=== PATIENT | female | born 1945 ===

== ENCOUNTER 2017-01-06 07:51 | Day surgery (SDC) | payer MEDICARE, SELFPAY ==
[2016-12-26 08:12] VITALS: BMI 33.6
[2017-01-06] MEDS ORDERED: Lactated Ringer's 1,000 ML IV ONE ×2 (11:33)
[2017-01-06] MEDS ORDERED: Propofol 10 mg/ml Inj (20 ML) ONE (11:38)
[2017-01-06] MEDS ORDERED: Midazolam 2 MG/2 ML VIAL ONE (11:38)
[2017-01-06] MEDS ORDERED: Doxycycline 100 mg Inj ONE (11:49)
[2017-01-06 12:23] VITALS: O2SAT 100
--- NOTE | 2017-01-06 12:31 | PCM.SURG1 ---
Surgeon's Initial Post Op Note - Surgeon's Notes Surgeon: lucas Neri Order Booker: none Type of Anesthesia: General LMA Pre-Operative Diagnosis: thickened endometrium and fluid Operative Findings: atrophic endometrium except for left cornua, polyp present, no evidence of perforation Post-Operative Diagnosis: endometrial polyp Operation Performed: hysteroscopy directed D&C with myosure polypectomy Specimen/Specimens Removed: directed curettage, endometrial polyp Estimated Blood Loss: EBL {In ML}: 5 (NS 212 cc) Date of Surgery/Procedure: 01/06/17 Time of Surgery/Procedure: 12:31
[2017-01-06 14:47] VITALS: BP 112/72; PULSE 65; RESP 18; TEMP 97
--- NOTE | 2017-01-08 03:13 | OP ---
PROCEDURE DATE: 01/06/2017 SURGEON: Asha Neri MD PONY WORKER: None. TYPE OF ANESTHESIA: General LMA. PREOPERATIVE DIAGNOSIS: Thickened endometrium with fluid. OPERATIVE FINDINGS: Atrophic endometrium except for the left cornua where a polyp was present. Ther e was no evidence of perforation at the end of the procedure. POSTOPERATIVE DIAGNOSIS: Thickened endometrium with fluid with endometrial polyp. OPERATIVE PROCEDURE: Hysteroscope directed D and C with MyoSure polypectomy, specimen directed curet tage, endometrial polyp. ESTIMATED BLOOD LOSS: 5 mL, normal saline fluid deficit 212 mL. OPERATIVE INDICATION: The patient is a 71-year-old female with endometrial fluid and thickened endom etrium found on ultrasound. She also has cervical stenosis. The above procedure was discussed and t he patient consented to proceed. OPERATIVE REPORT: The patient was taken to the OR where a timeout was performed. She was placed in dorsal lithotomy position and prepped in the usual sterile fashion. The cervix was visualized, grasp ed with single tooth tenaculum. The cervix was easily serially dilated until we could pass the opera tive hysteroscope. After visualization of the above findings, the MyoSure device was used to perform curettage directly and polypectomy. All instruments were removed at the end of the procedure. Ther e was good hemostasis. All sharps, instrument and lap counts were correct x 2. POSTOPERATIVE CONDITION: Stable for PACU. Asha Neri MD cc: [id number] TT: 01/08/2017 03:13:42 an
== END 2017-01-06 14:40 | disposition home or self-care (01) ==
LOC: C.SDS 07:51
PROVIDERS: ATTEND Obstetrics & Gynecology
DX: N85.00 Endometrial hyperplasia, unspecified (principal); N84.0 Polyp of corpus uteri
CPT/HCPCS: 36415; 58558; 82948; 86850; 86900; 88305; J2250; J2704; J3010; J7120

== ENCOUNTER 2017-10-08 13:26 | Emergency (ER) | payer MEDICARE ==
[2017-10-08 13:26] VITALS: BMI 33.6
[2017-10-08 13:37] VITALS: RESP 18
[2017-10-08] MEDS ORDERED: Sodium Chloride 0.9% 1,000 ML IV ONE (14:02)
[2017-10-08] MEDS ORDERED: Sodium Chloride 0.9% 1,000 ML ONE (14:23)
--- NOTE | 2017-10-08 14:47 | C.PDOC ---
History Of Present Illness 72-year-old female, presents to the emergency department with complaints of three-day duration of multiple episodes of non-bloody/watery diarrhea. Patient states she was taking Pepto bismol at home with no relief. Denies any abdominal pain, fevers, chills, shortness of breath, chest pain, nausea/vomiting or any other associated symptoms. She has no sick contacts and no recent travel. She has not taken any antibiotics recently. No other complaints at this time. Time Seen by Provider: 10/08/17 13:55 Chief Complaint (Nursing): GI Problem History Per: Patient History/Exam Limitations: no limitations Onset/Duration Of Symptoms: Days Current Symptoms Are (Timing): Still Present Past Medical History Reviewed: Historical Data, Nursing Documentation, Vital Signs Vital Signs: Last Vital Signs Temp 97.8 F 10/08/17 16:26 Pulse 61 10/08/17 16:26 Resp 18 10/08/17 16:26 BP 130/82 10/08/17 16:26 Pulse Ox 99 10/08/17 16:26 - Medical History PMH: Arthritis, Diabetes, Hepatitis, HTN, Hypercholesterolemia, Hypothyroidism, Chronic Kidney Disease Surgical History: Endoscopy - [facility] Procedures COLONOSCOPY (11/02/14) OTH NONOPER CARD AND VASC MEASURE (02/05/15) Family History: States: No Known Family Hx - Social History Hx Tobacco Use: No Hx Alcohol Use: No Hx Substance Use: No - Immunization History Hx Tetanus Toxoid Vaccination: No Hx Influenza Vaccination: No Hx Pneumococcal Vaccination: No Review Of Systems Except As Marked, All Systems Reviewed And Found Negative. Constitutional: Negative for: Fever, Chills, Weakness Cardiovascular: Negative for: Chest Pain, Palpitations Respiratory: Negative for: Shortness of Breath Gastrointestinal: Positive for: Diarrhea. Negative for: Nausea, Vomiting, Abdominal Pain Musculoskeletal: Negative for: Back Pain Neurological: Negative for: Weakness, Numbness, Headache, Dizziness Physical Exam - Physical Exam Appears: Non-toxic, No Acute Distress Skin: Warm, Dry, No Diaphoretic, No Rash, No Jaundice Head: Normacephalic Eye(s): bilateral: PERRL, EOMI Nose: Normal Oral Mucosa: Moist Lips: Normal Appearing Neck: Normal ROM Cardiovascular: Rhythm Regular, No Murmur Respiratory: Normal Breath Sounds, No Accessory Muscle Use Gastrointestinal/Abdominal: Soft, Tenderness (Mild, RLQ.), No Guarding, No Rebound Extremity: Normal ROM Neurological/Psych: Oriented x3, Normal Speech ED Course And Treatment - Laboratory Results Result Diagrams: 10/08/17 14:38 10/08/17 14:38 Lab Interpretation: No Acute Changes O2 Sat by Pulse Oximetry: 97 Progress Note: CMP, Lipase, CBC, and UA ordered and reviewed. patient treated with IVFs Reevaluation Time: 17:34 Reassessment Condition: Improved (Patient remains comfortable. she has not had any diarrhea while in ED despite tolerating a sandwich and juice.) Disposition Counseled Patient/Family Regarding: Studies Performed, Diagnosis, Need For Followup - Disposition Referrals: Kishor Peralta MD [Staff Provider] - Disposition: HOME/ ROUTINE Disposition Time: 17:35 Condition: IMPROVED Instructions: Acute Diarrhea (ED), Nutrition Tips for Relief of Diarrhea (ED) Forms: [email or web address] (Sri Lankan) - Clinical Impression Clinical Impression: Diarrhea - Scribe Statement The provider has reviewed the documentation as recorded by the Scribe (Keegan Hayes) All medical record entries made by the Scribe were at my direction and personally dictated by me. I have reviewed the chart and agree that the record accurately reflects my personal performance of the history, physical exam, medical decision making, and the department course for this patient. I have also personally directed, reviewed, and agree with the discharge instructions and disposition.
[2017-10-08 14:49] LABS: BASO % 0.6 % (0.0-2.0); EOS # 0.1 K/uL (0.0-0.7); EOS % 2.6 % (0.0-4.0); HEMOGLOBIN 12.3 g/dL (11.0-16.0); LYMPH % 41.8 % (20.0-40.0); MEAN CELL VOLUME 85.6 fL (81.0-99.0); MEAN CORPUSCULAR HEMOGLOBIN 28.7 pg (27.0-31.0); MEAN CORPUSCULAR HGB CONC 33.5 g/dL (33.0-37.0); MEAN PLATELET VOLUME 9.8 fL (7.2-11.7); MONO # 0.7 K/uL (0.0-0.8); RBC 4.28 Mil/uL (3.80-5.20); RED CELL DISTRIBUTION WIDTH 13.8 % (11.5-14.5); WHITE BLOOD COUNT 4.9 K/uL (4.8-10.8)
[2017-10-08 15:02] LABS: ALB/GLOB RATIO 1.1 (1.0-2.1); ALT/SGPT 65 U/L (9-52); AST/SGOT 64 U/L (14-36); BLOOD UREA NITROGEN 13 mg/dL (7-17); CALCIUM 9.1 mg/dl (8.6-10.4); GFR AFRICAN-AMERICAN > 60; GFR NON-AFRICAN AMERICAN > 60; LIPASE 65 U/L (23-300)
[2017-10-08 16:00] LABS: URINE BACTERIA RARE (<OCC); URINE BILIRUBIN NEGATIVE (NEGATIVE); URINE BLOOD NEGATIVE (NEGATIVE); URINE CLARITY Clear (Clear); URINE COLOR Colorless (YELLOW); URINE GLUCOSE (UA) NORMAL (Normal); URINE LEUKOCYTE ESTERASE NEG Leu/uL (Negative); URINE NITRATE NEGATIVE (NEGATIVE); URINE PROTEIN NEGATIVE (NEGATIVE); URINE UROBILINOGEN NORMAL mg/dL (0.2-1.0)
[2017-10-08 16:27] VITALS: TEMP 97.8
[2017-10-08 17:47] VITALS: BP 128/83; PULSE 72; O2SAT 99
== END 2017-10-08 18:23 | disposition home or self-care (01) ==
LOC: C.ER 13:26
DX: R19.7 Diarrhea, unspecified (principal); E78.00 Pure hypercholesterolemia, unspecified; I12.9 Hypertensive chronic kidney disease with stage 1 through stage 4 chronic kidney disease, or unspecified chronic kidney disease; N18.9 Chronic kidney disease, unspecified; E03.9 Hypothyroidism, unspecified
CPT/HCPCS: 80053; 81001; 83690; 85025; 96360; 99284; J7040

== ENCOUNTER 2018-02-17 17:50 | Emergency (ER) | payer MEDICARE, OTHER ==
[2018-02-17 17:51] VITALS: BMI 33.6
[2018-02-17 18:28] VITALS: O2SAT 95
[2018-02-17] MEDS ORDERED: Sodium Chloride 0.9% 1,000 ML IV ONE (19:11)
--- NOTE | 2018-02-17 19:11 | C.PDOC ---
History Of Present Illness Patient presents to the ER with a complaint of RLQ pain and right flank pain since yesterday, associated with fever, mild dysuria, and some nausea. Denies vomiting. Time Seen by Provider: 02/17/18 19:11 Chief Complaint (Nursing): Abdominal Pain History Per: Patient History/Exam Limitations: no limitations Onset/Duration Of Symptoms: Days Current Symptoms Are (Timing): Still Present Severity: Moderate Pain Scale Rating Of: 4 Location Of Pain/Discomfort: RLQ Radiation Of Pain To:: Flank (Right) Quality Of Discomfort: Unable To Describe Associated Symptoms: Fever, Nausea, Urinary Symptoms (Mild dysuria). denies: Vomiting Exacerbating Factors: None Alleviating Factors: None Recent travel outside of the [place]: No Abnormal Vaginal Bleeding: No Past Medical History Reviewed: Historical Data, Nursing Documentation, Vital Signs Vital Signs: Last Vital Signs Temp 99.8 F H 02/17/18 19:46 Pulse 92 H 02/17/18 19:46 Resp 13 02/17/18 19:46 BP 125/67 02/17/18 19:46 Pulse Ox 95 02/17/18 19:46 - Medical History PMH: Arthritis, Diabetes, Hepatitis, HTN, Hypercholesterolemia, Hypothyroidism, Chronic Kidney Disease Surgical History: Endoscopy - [facility] Procedures COLONOSCOPY (11/02/14) OTH NONOPER CARD AND VASC MEASURE (02/05/15) Family History: States: No Known Family Hx - Social History Hx Tobacco Use: No Hx Alcohol Use: No Hx Substance Use: No - Immunization History Hx Tetanus Toxoid Vaccination: No Hx Influenza Vaccination: No Hx Pneumococcal Vaccination: No Review Of Systems Constitutional: Positive for: Fever Cardiovascular: Negative for: Chest Pain, Palpitations Respiratory: Negative for: Cough, Shortness of Breath Gastrointestinal: Positive for: Nausea, Abdominal Pain. Negative for: Vomiting Genitourinary: Positive for: Dysuria Musculoskeletal: Positive for: Back Pain (Right flank) Physical Exam - Physical Exam Appears: Non-toxic Skin: Warm, Dry Head: Normacephalic Oral Mucosa: Moist Chest: Symmetrical, No Tenderness Cardiovascular: Rhythm Regular Respiratory: Normal Breath Sounds, No Rales, No Rhonchi, No Wheezing Gastrointestinal/Abdominal: Soft, Tenderness (RLQ), No Guarding, No Rebound Back: No CVA Tenderness Neurological/Psych: Oriented x3 ED Course And Treatment - Laboratory Results Result Diagrams: 02/17/18 19:22 02/17/18 19:22 O2 Sat by Pulse Oximetry: 95 (Room air) Pulse Ox Interpretation: Normal Progress Note: Blood work, EKG, urinalysis, and CXR ordered. IV fluids, zosyn, and tylenol administered. Reevaluation Time: 21:09 Reassessment Condition: Improved Disposition Counseled Patient/Family Regarding: Studies Performed, Diagnosis, Need For Followup, Rx Given - Disposition Referrals: Canelo Mixon MD [Staff Provider] - Disposition: HOME/ ROUTINE Disposition Time: 19:11 Condition: FAIR Additional Instructions: Please return if symptoms recur Prescriptions: Nitrofurantoin Macrocrystals [Macrobid] 1 cap PO BID #14 cap Phenazopyridine [Pyridium] 200 mg PO TID #6 tab Instructions: Urinary Tract Infection, Adult (DC) Forms: [facility] (Turkmen) - Clinical Impression Clinical Impression: Abdominal pain, UTI (urinary tract infection) - Scribe Statement The provider has reviewed the documentation as recorded by the Scribsen Knapp All medical record entries made by the Scribe were at my direction and personally dictated by me. I have reviewed the chart and agree that the record accurately reflects my personal performance of the history, physical exam, medical decision making, and the department course for this patient. I have also personally directed, reviewed, and agree with the discharge instructions and disposition.
[2018-02-17] MEDS ORDERED: Piperacillin/Tazobact 3.375 GM in Sodium Chloride 100 ML IVPB SCH (19:15)
[2018-02-17 19:27] LABS: BASO % 0.3 % (0.0-2.0); EOS % 0.1 % (0.0-4.0); HEMOGLOBIN 11.7 g/dL (11.0-16.0); LYMPH # 0.5 K/uL (1.0-4.3); LYMPH % 4.1 % (20.0-40.0); MEAN CELL VOLUME 84.6 fL (81.0-99.0); MEAN CORPUSCULAR HEMOGLOBIN 28.2 pg (27.0-31.0); MEAN CORPUSCULAR HGB CONC 33.4 g/dL (33.0-37.0); MEAN PLATELET VOLUME 9.5 fL (7.2-11.7); MONO # 1.1 K/uL (0.0-0.8); NEUT # 10.8 K/uL (1.8-7.0); NEUT % 86.5 % (50.0-75.0); PLATELET COUNT 167 K/uL (130-400); RBC 4.16 Mil/uL (3.80-5.20); RED CELL DISTRIBUTION WIDTH 13.7 % (11.5-14.5); WHITE BLOOD COUNT 12.5 K/uL (4.8-10.8)
[2018-02-17 19:34] LABS: SQUAMOUS EPITHIAL 4 /hpf (0-5); URINE BILIRUBIN NEGATIVE (NEGATIVE); URINE BLOOD 1+ (NEGATIVE); URINE CLARITY Hazy (Clear); URINE COLOR Yellow (YELLOW); URINE GLUCOSE (UA) NORMAL (Normal); URINE LEUKOCYTE ESTERASE 3+ Leu/uL (Negative); URINE PROTEIN NEGATIVE (NEGATIVE); URINE UROBILINOGEN NORMAL mg/dL (0.2-1.0)
[2018-02-17 19:37] LABS: INR 1.2; PROTHROMBIN TIME 12.9 SECONDS (9.7-12.2)
[2018-02-17 19:38] LABS: ALB/GLOB RATIO 1.2 (1.0-2.1); ALBUMIN 4.1 g/dL (3.5-5.0); ALT/SGPT 27 U/L (9-52); AST/SGOT 24 U/L (14-36); BLOOD UREA NITROGEN 18 mg/dL (7-17); CALCIUM 9.3 mg/dl (8.6-10.4); GFR AFRICAN-AMERICAN > 60; GFR NON-AFRICAN AMERICAN 55; LIPASE 48 U/L (23-300)
[2018-02-17] MEDS ORDERED: Sodium Chloride 0.9% 1,000 ML ONE (19:45)
[2018-02-17 20:01] LABS: VENOUS BLOOD GAS BASE EXCESS -1.1 mmol/L (0.0-2.0); VENOUS BLOOD GAS PCO2 33 mmHg (40-60); VENOUS BLOOD GAS PO2 46 mm/Hg (30-55); VENOUS BLOOD PH 7.44 (7.32-7.43)
[2018-02-17 20:02] LABS: LYMPHOCYTE 4 % (20-40); MONOCYTE 9 % (0-10); NEUTROPHIL 87 % (50-75); TOTAL CELLS COUNTED 100
[2018-02-17 20:03] LABS: PLATELET ESTIMATE NORMAL (NORMAL)
[2018-02-17 20:04] LABS: HYPOCHROMIC SLIGHT; POLYCHROMIC SLIGHT
[2018-02-17 21:34] VITALS: BP 121/67; PULSE 86; RESP 16; TEMP 98.4
--- NOTE | 2018-02-18 08:59 | CT ---
PROCEDURE: CT Abdomen and Pelvis without intravenous contrast HISTORY: Right flank pain. COMPARISON: CT abdomen and pelvis dated 10/23/2015 TECHNIQUE: Multiple contiguous axial images were performed through the abdomen and pelvis without the use of intravenous contrast. Subsequently, sagittal and coronal reformatted images were obtained. Radiation dose: Total exam DLP = 854 mGy-cm. This CT exam was performed using one or more of the following dose reduction techniques: Automated exposure control, adjustment of the mA and/or kV according to patient size, and/or use of iterative reconstruction technique. FINDINGS: LOWER THORAX: Linear atelectasis or fibrosis at the lung bases. Small esophageal hiatal hernia. LIVER: Unremarkable. No gross lesion or ductal dilatation. GALLBLADDER AND BILE DUCTS: Unremarkable. PANCREAS: Unremarkable. No gross lesion or ductal dilatation. SPLEEN: Unremarkable. ADRENALS: Unremarkable. No mass. KIDNEYS AND URETERS: Mild inflammation around the right kidney and ureter which may be secondary to recently passed calculus or urinary tract infection. 2 centimeter low-attenuation lesion in the midpole of the right kidney demonstrating a Hounsfield unit attenuation of 2 suggestive for a cyst. Additional 9 millimeter hyperattenuated foci in the midpole of the right kidney best seen on series 3, image 59 demonstrating a Hounsfield unit attenuation of 53. This is of uncertain clinical etiology. This may represent a hemorrhagic cyst; however, additional etiologies are not excluded. Correlation with multiphasic CT or MR may be helpful for further evaluation if clinically indicated. VASCULATURE: Unremarkable. No aortic aneurysm. BOWEL: Unremarkable. No obstruction. No gross mural thickening. Scattered areas of underdistention of the colon. APPENDIX: Not well visualized. PERITONEUM: Unremarkable. No free fluid. No free air. LYMPH NODES: Unremarkable. No enlarged lymph nodes. BLADDER: Underdistended and or mildly thickened urinary bladder. REPRODUCTIVE: Unremarkable. BONES: Degenerative changes in the lumbar spine. Anterolisthesis of L4 on L5. OTHER FINDINGS: None. IMPRESSION: No stones in either kidney or ureter and no hydronephrosis. Mild inflammation around the right kidney and ureter may be secondary to recently passed stone or urinary tract infection. Correlation with urinalysis maybe helpful. Underdistended and or mildly thickened urinary bladder. Clinical correlation. Additional findings as above. These findings were preliminarily reported at 9:07 p.m. on 02/17/[address] Sam Brown from [facility].
--- NOTE | 2018-02-18 12:04 | RAD ---
Chest x-ray single frontal view History: Abdominal pain. Comparison: Findings: Mild venous congestion. Right basilar atelectasis. Calcification at the aortic knob. Heart size within normal limits. Degenerative changes spine. Impression: Mild venous congestion. Right basilar atelectasis. Calcification at the aortic knob.
--- NOTE | 2018-02-18 22:24 | CARD ---
APPROVED REPORT EKG Measurement Heart [id number] <Conclusion> Normal sinus rhythm Normal ECG
== END 2018-02-17 21:43 | disposition home or self-care (01) ==
LOC: C.ER 17:50
DX: N39.0 Urinary tract infection, site not specified (principal); R10.31 Right lower quadrant pain; E03.9 Hypothyroidism, unspecified; E78.00 Pure hypercholesterolemia, unspecified; I12.9 Hypertensive chronic kidney disease with stage 1 through stage 4 chronic kidney disease, or unspecified chronic kidney disease; N18.9 Chronic kidney disease, unspecified
CPT/HCPCS: 71045; 74176; 80053; 81001; 82803; 83690; 85025; 85610; 85730; 87040; 87086; 93005; 96365; 99285; J2543; J7030; J7050

== ENCOUNTER 2018-03-31 10:39 | Observation (INO) | payer MEDICARE, OTHER ==
[2018-03-31 10:39] VITALS: BMI 33.6
[2018-03-31] MEDS ORDERED: Nitroglycerin 2% Ointment Foilpak UD TOP STA (11:37)
[2018-03-31] MEDS ORDERED: Nitroglycerin 2% Ointment Foilpak UD TOP ONE (11:45)
[2018-03-31 11:53] LABS: BASO # 0.1 K/uL (0.0-0.2); BASO % 1.2 % (0.0-2.0); EOS # 0.2 K/uL (0.0-0.7); EOS % 2.4 % (0.0-4.0); LYMPH # 1.9 K/uL (1.0-4.3); LYMPH % 29.2 % (20.0-40.0); MEAN CELL VOLUME 84.9 fL (81.0-99.0); MEAN CORPUSCULAR HEMOGLOBIN 28.6 pg (27.0-31.0); MEAN CORPUSCULAR HGB CONC 33.7 g/dL (33.0-37.0); MEAN PLATELET VOLUME 10.4 fL (7.2-11.7); MONO # 0.5 K/uL (0.0-0.8); MONO % 7.9 % (0.0-10.0); NEUT # 3.8 K/uL (1.8-7.0); NEUT % 59.3 % (50.0-75.0); NRBC % 0.1 % (0.0-2.0); RBC 4.56 Mil/uL (3.80-5.20); RED CELL DISTRIBUTION WIDTH 14.7 % (11.5-14.5); WHITE BLOOD COUNT 6.5 K/uL (4.8-10.8)
[2018-03-31 12:08] LABS: ALB/GLOB RATIO 1.2 (1.0-2.1); ALBUMIN 4.4 g/dL (3.5-5.0); CALCIUM 9.7 mg/dl (8.6-10.4); D DIMER < 200 ng/mlDDU (0-243); GFR AFRICAN-AMERICAN > 60; GFR NON-AFRICAN AMERICAN > 60; PARTIAL THROMBOPLASTIN TIME 37 SECONDS (21-34)
[2018-03-31 12:15] LABS: ALT/SGPT 31 U/L (9-52); AST/SGOT 39 U/L (14-36); BLOOD UREA NITROGEN 16 mg/dL (7-17)
[2018-03-31 12:16] LABS: CK-MB 1.67 ng/mL (0.0-3.38)
--- NOTE | 2018-03-31 12:31 | C.PDOC ---
History Of Present Illness 72 year old female patient presents to the ER with c/o chest pain. Patient states "it feels like choking and pain" along with a headache. Patient reports the pain started yesterday. Patient notes she routinely takes her blood pressure medication, but her blood pressure has not returned to normal. Patient states she now feels better in the emergency room, however, her left arm is in pain. Patient denies SOB, coughing, fever and chills. Time Seen by Provider: 03/31/18 11:17 Chief Complaint (Nursing): Chest Pain History Per: Patient History/Exam Limitations: no limitations Onset/Duration Of Symptoms: Days (x2) Quality: "Pain", Other ("feels like choking") Associated Symptoms: Other (headache) Past Medical History Reviewed: Historical Data, Nursing Documentation, Vital Signs Vital Signs: Last Vital Signs Temp 97.4 F L 03/31/18 16:45 Pulse 63 03/31/18 16:45 Resp 20 03/31/18 16:45 BP 131/76 03/31/18 16:45 Pulse Ox 96 03/31/18 16:45 - Medical History PMH: Arthritis, Diabetes, Hepatitis, HTN, Hypercholesterolemia, Hypothyroidism, Chronic Kidney Disease Surgical History: Endoscopy, Tonsillectomy - [facility] Procedures COLONOSCOPY (11/02/14) OTH NONOPER CARD AND VASC MEASURE (02/05/15) Family History: States: Unknown Family Hx - Social History Hx Tobacco Use: No Hx Alcohol Use: No Hx Substance Use: No - Immunization History Hx Tetanus Toxoid Vaccination: No Hx Influenza Vaccination: No Hx Pneumococcal Vaccination: No Review Of Systems Except As Marked, All Systems Reviewed And Found Negative. Constitutional: Negative for: Fever, Chills Cardiovascular: Positive for: Chest Pain Respiratory: Negative for: Cough, Shortness of Breath Musculoskeletal: Positive for: Arm Pain (left) Physical Exam - Physical Exam Appears: Well, Non-toxic, No Acute Distress Skin: Normal Color, Warm, Dry Head: Atraumatic, Normacephalic Eye(s): bilateral: Normal Inspection Neck: Normal ROM, Supple Chest: Symmetrical, No Deformity Cardiovascular: Rhythm Regular Respiratory: Normal Breath Sounds Gastrointestinal/Abdominal: Soft, No Tenderness Back: No CVA Tenderness Extremity: Normal ROM (x4), No Pedal Edema Neurological/Psych: Oriented x3, Normal Speech, Normal Motor, Normal Sensation, Normal Reflexes Gait: Steady ED Course And Treatment - Laboratory Results Result Diagrams: 03/31/18 11:45 03/31/18 11:45 ECG: Interpreted By Me, Viewed By Me ECG Rhythm: Sinus Rhythm, R BBB (incomplete) ECG Interpretation: No Acute Changes Rate From EC O2 Sat by Pulse Oximetry: 98 (RA) Pulse Ox Interpretation: Normal - Radiology CXR: Interpreted by Me CXR Interpretation: Yes: No Acute Disease Progress Note: Impression: chest pain and left arm pain. Plans: -- EKG. -- blood work. -- CXR. -- Aspirin. -- nitroglycerin 2%. -- UA. Reassess: Patient is resting comfortably. Tolerating PO. No shortness of breath. Patient is advised to f/u with utility driver in 1-2 days. - Physician Consult Information Physician Contacted: Canelo Mixon Disposition - Disposition Disposition: HOSPITALIZED Disposition Time: 12:56 Condition: FAIR - Clinical Impression Clinical Impression: Chest pain - PA / DIRECTOR OF INSTITUTIONAL RESEARCH / Resident Statement / has reviewed & agrees with the documentation as recorded. - Scribe Statement The provider has reviewed the documentation as recorded by the [place] Do All medical record entries made by the Scribe were at my direction and personally dictated by me. I have reviewed the chart and agree that the record accurately reflects my personal performance of the history, physical exam, medical decision making, and the department course for this patient. I have also personally directed, reviewed, and agree with the discharge instructions and disposition. Decision To Admit - Pt Status Changed To: Hospital Disposition Of: Observation - . Bed Request Type: Telemetry Admitting Physician: Canelo Mixon Patient Diagnosis: Chest pain
--- NOTE | 2018-03-31 13:07 | RAD ---
Date of service: 03/31/2018 PROCEDURE: CHEST RADIOGRAPH, 1 VIEW HISTORY: CP COMPARISON: None available. FINDINGS: LUNGS: No acute pulmonary disease appreciated bilaterally. PLEURA: No pneumothorax or pleural fluid seen. CARDIOVASCULAR: Normal. OSSEOUS STRUCTURES: No significant abnormalities. VISUALIZED UPPER ABDOMEN: Normal. OTHER FINDINGS: None. IMPRESSION: No interval acute cardiopulmonary disease appreciated.
--- NOTE | 2018-03-31 15:16 | CARD ---
APPROVED REPORT Date of service: 03/31/2018 EKG Measurement Heart [id number] <Conclusion> Normal sinus rhythm Normal ECG
[2018-03-31] MEDS ORDERED: Glucagon Recombinant 1 mg Inj IM PRN (18:06)
[2018-03-31] MEDS ORDERED: Dextrose 50% SYRINGE Inj (50 ml) IV PRN (18:06)
[2018-03-31 18:54] LABS: CK-MB 1.23 ng/mL (0.0-3.38)
[2018-03-31] MEDS: (Novolog) Insulin Aspart, Recombinant 100 u/ml 10 ml vial SC SCH (21:12)
--- NOTE | 2018-03-31 21:36 | CP.PCM.CON ---
History of Present Illness - History of Present Illness History of Present Illness: 72 year old female patient presents to the ER with c/o chest pain. Patient states "it feels like choking and pain" along with a headache. Patient reports the pain started yesterday. Patient notes she routinely takes her blood pressure medication, but her blood pressure has not returned to normal. Patient states she now feels better in the emergency room, however, her left arm is in pain. Patient denies SOB, coughing, fever and chills. Chief Complaint (Nursing): Chest Pain History Per: Patient History/Exam Limitations: no limitations Onset/Duration Of Symptoms: Days (x2) Quality: "Pain", Other ("feels like choking") Associated Symptoms: Other (headache) - Medical History PMH: Arthritis, Diabetes, Hepatitis, HTN, Hypercholesterolemia, Hypothyroidism, Chronic Kidney Disease Surgical History: Endoscopy, Tonsillectomy - [facility] Procedures COLONOSCOPY (11/02/14) OTH NONOPER CARD AND VASC MEASURE (02/05/15) Family History: States: Unknown Family Hx - Social History Hx Tobacco Use: No Hx Alcohol Use: No Hx Substance Use: No - Immunization History Hx Tetanus Toxoid Vaccination: No Hx Influenza Vaccination: No Hx Pneumococcal Vaccination: No Review Of Systems Except As Marked, All Systems Reviewed And Found Negative. Constitutional: Negative for: Fever, Chills Cardiovascular: Positive for: Chest Pain Respiratory: Negative for: Cough, Shortness of Breath Musculoskeletal: Positive for: Arm Pain (left) Physical Exam - Physical Exam Appears: Well, Non-toxic, No Acute Distress Skin: Normal Color, Warm, Dry Head: Atraumatic, Normacephalic Eye(s): bilateral: Normal Inspection Neck: Normal ROM, Supple Chest: Symmetrical, No Deformity Cardiovascular: Rhythm Regular Respiratory: Normal Breath Sounds Gastrointestinal/Abdominal: Soft, No Tenderness Back: No CVA Tenderness Extremity: Normal ROM (x4), No Pedal Edema Neurological/Psych: Oriented x3, Normal Speech, Normal Motor, Normal Sensation, Normal Reflexes Gait: Steady Past Patient History - Infectious Disease Hx of Infectious Diseases: None - Past Medical History & Family History Past Medical History?: Yes - Past Social History Smoking Status: Former Smoker - CARDIAC Hx Hypercholesterolemia: Yes Hx Hypertension: Yes - PULMONARY Hx Respiratory Disorders: No - NEUROLOGICAL Hx Neurological Disorder: No - HEENT Hx HEENT Problems: Yes Hx Glaucoma: Yes ([place]) - RENAL Hx Chronic Kidney Disease: Yes - ENDOCRINE/METABOLIC Hx Hypothyroidism: Yes - HEMATOLOGICAL/ONCOLOGICAL Hx Blood Disorders: Yes Hx Hepatitis C: Yes (Treated in 2009) - INTEGUMENTARY Hx Dermatological Problems: No - MUSCULOSKELETAL/RHEUMATOLOGICAL Hx Arthritis: Yes - GASTROINTESTINAL Hx Gastrointestinal Disorders: Yes Hx Fatty Liver Disease: Yes (FATTY INFILTRATION PER ULTRASOUND) Hx Gastroesophageal Reflux: Yes Hx Hemorrhoids: Yes - GENITOURINARY/GYNECOLOGICAL Hx Genitourinary Disorders: Yes Other/Comment: HX: THICKENED ENDOMETRIUM - PSYCHIATRIC Hx Substance Use: No - SURGICAL HISTORY Hx Tonsillectomy: Yes - ANESTHESIA Hx Anesthesia: Yes Hx Anesthesia Reactions: No Hx Malignant Hyperthermia: No Meds Allergies/Adverse Reactions: Allergies Allergy/AdvReac Type Severity Reaction Status Date / Time iodine Allergy RASH Verified 03/31/18 10:44 SEAFOOD Allergy Severe RASH Uncoded 02/17/18 18:28 - Medications Medications: Current Medications Alprazolam (Xanax) 0.25 mg PO DAILY PRN PRN Reason: Anxiety Stop: 04/07/18 18:03 Aspirin (Aspirin Chewable) 81 mg PO DAILY [facility] Dextrose (Dextrose 50% Inj) 0 ml IV STAT PRN; Protocol PRN Reason: Hypoglycemia Protocol Dextrose (Glutose 15) 0 gm PO ONCE PRN; Protocol PRN Reason: Hypoglycemia Protocol Glucagon (Glucagen Diagnostic Kit) 0 mg IM STAT PRN; Protocol PRN Reason: Hypoglycemia Protocol Heparin Sodium (Porcine) (Heparin) 5,000 units SC Q12 [facility] Hydrochlorothiazide (Hydrodiuril) 25 mg PO DAILY [facility] Hydrochlorothiazide (Microzide) 12.5 mg PO DAILY [facility] Dextrose (Dextrose 5% In Water 1000 Ml) 1,000 mls @ 0 mls/hr IV .Q0M PRN; Protocol; Per Protocol PRN Reason: Hypoglycemia Protocol Insulin Aspart (Novolog) 0 unit SC ACHS [facility] PRN Reason: Protocol Last Admin: 03/31/18 21:12 Dose: Not Given Levothyroxine Sodium (Synthroid) 75 mcg PO DAILY@0630 [facility] Losartan Potassium (Cozaar) 50 mg PO DAILY [facility] Metformin HCl (Glucophage Xr) 750 mg PO QPM [facility] Pantoprazole Sodium (Protonix Ec Tab) 40 mg PO DAILY [facility] Rosuvastatin Calcium (Crestor) 5 mg PO DAILY [facility] Results - Vital Signs Recent Vital Signs: Last Vital Signs Temp 97.4 F L 03/31/18 16:45 Pulse 63 03/31/18 16:45 Resp 20 03/31/18 16:45 BP 131/76 03/31/18 16:45 Pulse Ox 98 03/31/18 20:44 - Labs Result Diagrams: 03/31/18 11:45 03/31/18 11:45 Labs: Laboratory Results - last 24 hr 03/31/18 03/31/18 03/31/18 11:45 11:45 11:45 WBC 6.5 RBC 4.56 Hgb 13.0 Hct 38.7 MCV 84.9 MCH 28.6 MCHC 33.7 RDW 14.7 H Plt Count 188 MPV 10.4 Neut % (Auto) 59.3 Lymph % (Auto) 29.2 [place] % (Auto) 7.9 Eos % (Auto) 2.4 Baso % (Auto) 1.2 Neut # (Auto) 3.8 Lymph # (Auto) 1.9 [place] # (Auto) 0.5 Eos # (Auto) 0.2 Baso # (Auto) 0.1 PT 11.0 INR 1.0 APTT 37 H D-Dimer, Quantitative < 200 Sodium 141 Potassium 4.5 Chloride 104 Carbon Dioxide 25 Anion Gap 16 BUN 16 Creatinine 0.9 Est GFR ( Amer) > 60 Est GFR (Non-Af Amer) > 60 POC Glucose (mg/dL) Random Glucose 131 H Calcium 9.7 Total Bilirubin 0.9 AST 39 H D ALT 31 Alkaline Phosphatase 83 Total Creatine Kinase 99 CK-MB (Mass) 1.67 Troponin I Total Protein 8.2 Albumin 4.4 Globulin 3.8 Albumin/Globulin Ratio 1.2 03/31/18 03/31/18 17:41 18:20 WBC RBC Hgb Hct MCV MCH MCHC RDW Plt Count MPV Neut % (Auto) Lymph % (Auto) [place] % (Auto) Eos % (Auto) Baso % (Auto) Neut # (Auto) Lymph # (Auto) [place] # (Auto) Eos # (Auto) Baso # (Auto) PT INR APTT D-Dimer, Quantitative Sodium Potassium Chloride Carbon Dioxide Anion Gap BUN Creatinine Est GFR ( Amer) Est GFR (Non-Af Amer) POC Glucose (mg/dL) 98 Random Glucose Calcium Total Bilirubin AST ALT Alkaline Phosphatase Total Creatine Kinase 86 CK-MB (Mass) 1.23 Troponin I < 0.0120 Total Protein Albumin Globulin Albumin/Globulin Ratio Assessment & Plan - Assessment and Plan (Free Text) Assessment: (1) Cardiac arrhythmia Current Visit: Yes Status: Acute Comment: Chest Pain Check stress test (2) Diabetes mellitus Current Visit: No Status: Acute Comment: Summer HILTON Continue home med Metformin 500mg PO Daily Cont Insulin sliding scale Monitor (3) Hypertension Current Visit: No Status: Chronic Comment: Continue current meds Patient scheduled for stress test in am
[2018-04-01 02:30] LABS: SQUAMOUS EPITHIAL 8 /hpf (0-5); URINE BACTERIA RARE (<OCC); URINE BILIRUBIN NEGATIVE (NEGATIVE); URINE BLOOD NEGATIVE (NEGATIVE); URINE CLARITY Hazy (Clear); URINE COLOR Yellow (YELLOW); URINE GLUCOSE (UA) NORMAL (Normal); URINE LEUKOCYTE ESTERASE 2+ Leu/uL (Negative); URINE PROTEIN NEGATIVE (NEGATIVE); URINE UROBILINOGEN NORMAL mg/dL (0.2-1.0)
[2018-04-01 02:55] LABS: CK-MB 0.87 ng/mL (0.0-3.38)
[2018-04-01] MEDS ORDERED: Levothyroxine 75 MCG TAB PO SCH (06:30)
[2018-04-01] MEDS: (Novolog) Insulin Aspart, Recombinant 100 u/ml 10 ml vial SC SCH ×3 (07:50→17:37)
[2018-04-01] MEDS ORDERED: Pantoprazole 40 mg EC Tab PO SCH (10:00)
--- NOTE | 2018-04-01 11:56 | CP.PCM.PN ---
<Arabella Julio - Last Filed: 04/01/18 17:53> Subjective - Date & Time of Evaluation Date of Evaluation: 04/01/18 Time of Evaluation: 11:55 - Subjective Subjective: Cardiology Progress Note - Dr Elkins Patient seen and examined at bedside. Per nursing no acute events overnight. Patient went for nuclear stress test this morning. Currently complaining of a headache, she received Tylenol last night with improvement. Denies chest pain or dyspnea. Objective - Vital Signs/Intake and Output Vital Signs (last 24 hours): Temp Pulse Resp BP Pulse Ox 98.2 F 70 18 105/68 98 04/01/18 07:00 04/01/18 07:15 04/01/18 07:00 04/01/18 07:00 04/01/18 07:00 Intake and Output: 04/01/18 04/01/18 06:59 18:59 Intake Total 240 Balance 240 - Medications Medications: Current Medications Alprazolam (Xanax) 0.25 mg PO DAILY PRN PRN Reason: Anxiety Stop: 04/07/18 18:03 Aspirin (Aspirin Chewable) 81 mg PO DAILY [facility] Last Admin: 04/01/18 10:29 Dose: 81 mg Dextrose (Dextrose 50% Inj) 0 ml IV STAT PRN; Protocol PRN Reason: Hypoglycemia Protocol Dextrose (Glutose 15) 0 gm PO ONCE PRN; Protocol PRN Reason: Hypoglycemia Protocol Glucagon (Glucagen Diagnostic Kit) 0 mg IM STAT PRN; Protocol PRN Reason: Hypoglycemia Protocol Heparin Sodium (Porcine) (Heparin) 5,000 units SC Q12 [facility] Last Admin: 04/01/18 10:30 Dose: 5,000 units Hydrochlorothiazide (Microzide) 12.5 mg PO DAILY [facility] Last Admin: 04/01/18 10:30 Dose: 12.5 mg Dextrose (Dextrose 5% In Water 1000 Ml) 1,000 mls @ 0 mls/hr IV .Q0M PRN; Protocol; Per Protocol PRN Reason: Hypoglycemia Protocol Insulin Aspart (Novolog) 0 unit SC ACHS [facility] PRN Reason: Protocol Last Admin: 04/01/18 07:50 Dose: Not Given Levothyroxine Sodium (Synthroid) 75 mcg PO DAILY@0630 [facility] Last Admin: 04/01/18 05:37 Dose: 75 mcg Losartan Potassium (Cozaar) 50 mg PO DAILY [facility] Last Admin: 04/01/18 10:29 Dose: 50 mg Metformin HCl (Glucophage Xr) 750 mg PO QPM [facility] Pantoprazole Sodium (Protonix Ec Tab) 40 mg PO DAILY [facility] Last Admin: 04/01/18 10:29 Dose: 40 mg Rosuvastatin Calcium (Crestor) 5 mg PO DAILY [facility] Last Admin: 04/01/18 10:29 Dose: 5 mg - Labs Labs: 03/31/18 11:45 03/31/18 11:45 PT 11.0 SECONDS (9.7-12.2) 03/31/18 11:45 INR 1.0 03/31/18 11:45 APTT 37 SECONDS (21-34) H 03/31/18 11:45 - Constitutional Appears: Well, No Acute Distress - Head Exam Head Exam: ATRAUMATIC, NORMAL INSPECTION, NORMOCEPHALIC - Eye Exam Eye Exam: EOMI, Normal appearance Pupil Exam: NORMAL ACCOMODATION - ENT Exam ENT Exam: Mucous Membranes Moist - Respiratory Exam Respiratory Exam: Clear to Ausculation Bilateral, NORMAL BREATHING PATTERN. absent: Rales, Rhonchi, Wheezes - Cardiovascular Exam Cardiovascular Exam: REGULAR RHYTHM, +S1, +S2 - GI/Abdominal Exam GI & Abdominal Exam: Soft. absent: Guarding, Rigid, Tenderness - Extremities Exam Extremities Exam: Normal Inspection. absent: Calf Tenderness - Back Exam Back Exam: NORMAL INSPECTION - Neurological Exam Neurological Exam: Alert, Awake, Oriented x3 - Psychiatric Exam Psychiatric exam: Normal Affect, Normal Mood - Skin Skin Exam: Dry, Normal Color, Warm Assessment and Plan - Assessment and Plan (Free Text) Assessment: Chest pain r/o ACS -Stable, afebrile -Troponins negative x 3 -Patient went for stress test this morning, official report pending -Will review echo that was performed in office -Continue ASA 81mg PO daily and Crestor 5mg PO HS -Check lipid panel, hgA1C -Last cardiac cath in 2014 showed patent coronaries and LVEF 65% Hypertension -Normatensive -Continue home medications Diabetes Mellitus -Continue Metformin 750mg PO Hypercholesterolemia -Continue Crestor 5mg PO HS Headache -Tylenol 650mg PO STAT -Continue to monitor Abnormal UA -UA with positive nitrates, +2 leuk esterase, 53 WBCs -Asymptomatic, denies dysuria Plan to be discussed with Dr Seevro Julio DO PGY-2 <Mike Elkins - Last Filed: 04/01/18 19:45> Objective - Vital Signs/Intake and Output Vital Signs (last 24 hours): Temp Pulse Resp BP Pulse Ox 97.6 F 68 20 123/75 96 04/01/18 15:00 04/01/18 15:00 04/01/18 15:00 04/01/18 15:00 04/01/18 15:00 Intake and Output: 04/01/18 04/02/18 18:59 06:59 Intake Total 300 Balance 300 - Medications Medications: Current Medications Alprazolam (Xanax) 0.25 mg PO DAILY PRN PRN Reason: Anxiety Stop: 04/07/18 18:03 Aspirin (Aspirin Chewable) 81 mg PO DAILY [facility] Last Admin: 04/01/18 10:29 Dose: 81 mg Dextrose (Dextrose 50% Inj) 0 ml IV STAT PRN; Protocol PRN Reason: Hypoglycemia Protocol Dextrose (Glutose 15) 0 gm PO ONCE PRN; Protocol PRN Reason: Hypoglycemia Protocol Glucagon (Glucagen Diagnostic Kit) 0 mg IM STAT PRN; Protocol PRN Reason: Hypoglycemia Protocol Heparin Sodium (Porcine) (Heparin) 5,000 units SC Q12 [facility] Last Admin: 04/01/18 10:30 Dose: 5,000 units Hydrochlorothiazide (Microzide) 12.5 mg PO DAILY [facility] Last Admin: 04/01/18 10:30 Dose: 12.5 mg Dextrose (Dextrose 5% In Water 1000 Ml) 1,000 mls @ 0 mls/hr IV .Q0M PRN; Protocol; Per Protocol PRN Reason: Hypoglycemia Protocol Insulin Aspart (Novolog) 0 unit SC ACHS [facility] PRN Reason: Protocol Last Admin: 04/01/18 17:37 Dose: Not Given Levothyroxine Sodium (Synthroid) 75 mcg PO DAILY@0630 [facility] Last Admin: 04/01/18 05:37 Dose: 75 mcg Losartan Potassium (Cozaar) 50 mg PO DAILY [facility] Last Admin: 04/01/18 10:29 Dose: 50 mg Metformin HCl (Glucophage Xr) 750 mg PO QPM [facility] Last Admin: 04/01/18 17:38 Dose: 750 mg Pantoprazole Sodium (Protonix Ec Tab) 40 mg PO DAILY [facility] Last Admin: 04/01/18 10:29 Dose: 40 mg Rosuvastatin Calcium (Crestor) 5 mg PO DAILY [facility] Last Admin: 04/01/18 10:29 Dose: 5 mg - Labs Labs: 03/31/18 11:45 03/31/18 11:45 PT 11.0 SECONDS (9.7-12.2) 03/31/18 11:45 INR 1.0 03/31/18 11:45 APTT 37 SECONDS (21-34) H 03/31/18 11:45 Assessment and Plan - Assessment and Plan (Free Text) Assessment: Patient seen and evaluated personally by tx Plan of care d/w the ophthalmic medical technician and as documented Normal stress test. No further cardiac work up needed at this time
[2018-04-01 12:03] LABS: CK-MB 1.06 ng/mL (0.0-3.38)
[2018-04-01 16:18] VITALS: BP 123/75; PULSE 68; RESP 20; TEMP 97.6; O2SAT 96
--- NOTE | 2018-04-02 07:55 | HP ---
Copied To: Canelo Mixon MD Attending MD: Canelo Mixon MD HISTORY OF PRESENT ILLNESS: This is a 72-year-old female with history of multiple medical problems, presented to emergency room with symptoms of chest pain, found also to have elevated blood pressure. The patient stated that the chest pain occurred at rest and she did not have similar attack before. Symptoms were not associated with any symptoms of palpitation or shortness of breath. The patient was evaluated in the emergency room and due to the multiple risk factors, the patient was admitted for further management. REVIEW OF SYSTEMS: Other review of system is negative. ALLERGIES: POSITIVE FOR IODINE AND SEAFOOD. SOCIAL HISTORY: No history of smoking, EtOH, or substance abuse. FAMILY HISTORY: Noncontributory. PAST MEDICAL HISTORY: Hypertension, gastroesophageal reflux disease, hypothyroidism, type 2 diabetes mellitus. MEDICATIONS: Reviewed as per MAR. SOCIAL HISTORY: No history of smoking, EtOH, or substance abuse. FAMILY HISTORY: Noncontributory. PHYSICAL EXAMINATION: GENERAL: The patient is in no cardiopulmonary distress at the time of this examination in the emergency room. VITAL SIGNS: Blood pressure 132/66, temperature 98, respiratory rate 18, and pulse 56. HEENT: Pupils equal, and reactive to light. Normal-appearing mucosa of the conjunctivae, oropharynx, and nasal membrane mucosa. NECK: Supple. No JVD. No carotid bruit. No lymph node. No thyromegaly. CHEST/LUNGS: Bilateral symmetrical expansion. Good air exchange. No rales, no rhonchi. CARDIOVASCULAR SYSTEM: PMI not localized. S1, S2. No additional sounds. There is no reproducible tenderness. ABDOMEN: Normoactive bowel sounds. No tenderness. No organomegaly. No masses. EXTREMITIES: No cyanosis, no clubbing, no edema. MARKETING COMMUNICATIONS MANAGER: Alert, awake, and oriented x2. No neurological deficits could be appreciated. ASSESSMENT: 1. Chest pain, rule out myocardial infarction/acute coronary syndrome. 2. Hypertension. 3. Type 2 diabetes mellitus. 4. Hypothyroidism. PLAN: We will follow recommendations of Cardiology, Dr. Elkins and cardiac enzymes every 8 hours x3. Resume the patient's home medications. Continue aspirin. Canelo Mixon MD [facility] # [id number]
--- NOTE | 2018-04-02 18:24 | DS ---
Copied To: Canelo Mixon MD Attending MD: Canelo Mixon MD REASON FOR ADMISSION: This is a 72-year-old female with history of multiple medical problems who was admitted for chest pain to rule out acute coronary syndrome. COURSE OF HOSPITALIZATION: Patient was admitted to telemetry floor and myocardial infarction was ruled out. Patient had a nuclear cardiology test done that did not show any significant ischemic changes. Patient was cleared by Cardiology for discharge and she was discharged chest pain free, to follow her in the office next week. FINAL DIAGNOSES: Chest pain, myocardial infarction was ruled out, stress test was negative. Hypertension, hypothyroidism, and type 2 diabetes mellitus. Canelo Mixon MD
--- NOTE | 2018-04-03 00:16 | CARD ---
APPROVED REPORT Date of service: 04/01/2018 Protocol: LEXISCAN Test Type: LEXISCAN Test Indications: CP Target HR: 148 bpm Resting ECG: NSR Resting Heart Rate: 76 bpm Resting Blood Pressure: 134/80mmHg submaximum (85%): 126 bpm TEST SUMMARY PREINFSNHYPERV.09:[id number]/80.0. INFUSIONDOSE 100:300.00.01.080/.0. [id number]/80.0. PROCEDURE Pharmacologic stress testing was performed using 0.4mg per 5ml of regadenoson given intravenously over 7-10 seconds. POST EXERCISE Reason for Termination: Protocol Completed Target HR: No Max HR: 80 bpm 75% of Maximum Predicted HR: 148 bpm Exercise duration: 00:30 min:sec, 0 Stage Exercise capacity: 1.0METs Max Blood Pressure: 134/80mmHg Blood Pressure response to exercise: normal resting BP - appropriate response Heart Rate response to exercise: appropriate Chest Pain: No, none Angina index: 0 Arrhythmia: No, none ST Change: No, none Deviation: 0 mm INTERPRETATION Stress EKG Conclusion: NEGATIVE LEXISCAN STRESS TEST NORMAL BP RESPONSE TO LEXISCAN NUCLEAR STUDIES TO BE READ SEPARATELY EXAM: Myocardial Perfusion STRESS/REST Imaging Protocol The imaging protocol used to acquire images was Stress Tc-99m/rest Tc-99m 1 day Stress Spect myocardial perfusion imaging was performed in supine position 45 minutes following the injection of 12.3 mCi of Tc-99 Myoview. Gated Rest Spect was performed 55 minutes after intravenous 32.5 mci Tc-99 Myoview injection. The images were gated to evaluate regional wall motion and calculate ventricular ejection fraction.Images were reconstructed using backfilter projection method in short horizontal and verticle long axis. Spect slices were generated. RESTING DATA EDV50.22vxDR5.60L/min1/3 Pk. Filling Rate1.71EDV/sec LV Time to Pk. Filling Qqqb812.84msec ESV8.00mlMyocardial Ncmc319.00gLV Time to Pk. Ejection Bekf173.02msec Pk. Fill Rate2.61EDV/secAv. Heart Rate62.00bpm EF84.00%Pk. Emptying Rate4.50ESV/sec STRESS DATA EDV63.95deVG9.60L/min ESV11.00mlMyocardial Vygz276.00g Pk. Fill Rate3.81EDV/sec EF83.00%Pk. Emptying Rate4.44ESV/sec 1/3 Pk. Filling Rate1.09EDV/secRegional WT score at stress:0.00 LV Time to Pk. Filling Rate:228.08msecRegional WM score at stress:0.00 LV Time to Pk. Ejection Rate:166.90msecSummed WT score at stress:0.00 Av. Heart Rate69.00bpmSummed WM score at stress:0.00 LV Perf. Quant 17 Seg. SSS1.00 17 Seg. SRS0.00 17 Seg. SDS1.00 Stress Defect Extent (% LAD)0.00Rest Defect Extent (% LAD)0.00Rev. Defect Extent (% LAD)0.00 Stress Defect Extent (% LCX)0.00Rest Defect Extent (% LCX)0.00Rev. Defect Extent (% LCX)0.00 Stress Defect Extent (% RCA)0.00Rest Defect Extent (% RCA)0.00Rev. Defect Extent (% RCA)0.00 Stress Defect Extent (% ROXANNE)0.00Rest Defect Extent (% ROXANNE)0.00Rev. Defect Extent (% ROXANNE)0.00 Other Information Quality:Good IMPRESSION Normal Myocardial Perfusion exercise stress study Left Ventricle LV Function:Left ventricle systolic function is normal. The Ejection Fraction is >55%. Metabolism/Perfusion There are no perfusion/metabolism defects. Conclusion 1. Normal Nuclear stress test
== END 2018-04-01 19:45 | disposition home or self-care (01) ==
LOC: C.ER 10:39 → C.9E 12:52 → C.6T 15:45
PROVIDERS: ADMIT Internal Medicine; ATTEND Internal Medicine
DX: R07.89 Other chest pain (principal); I10 Essential (primary) hypertension; E11.9 Type 2 diabetes mellitus without complications; E03.9 Hypothyroidism, unspecified; K21.9 Gastro-esophageal reflux disease without esophagitis
CPT/HCPCS: 36415; 71045; 78452; 80053; 81001; 82550; 82553; 82948; 84484; 85025; 85378; 85610; 85730; 93005; 93017; 99283; A9502; G0378; J1644

== ENCOUNTER 2018-08-03 07:46 | Day surgery (SDC) | payer MEDICARE, OTHER ==
[2018-07-20 11:16] VITALS: BMI 34.0
[2018-08-03] MEDS ORDERED: Propofol 10 mg/ml Inj (20 ML) ONE (12:02)
[2018-08-03] MEDS ORDERED: Vasopressin 20 Units/ml Inj ONE (12:12)
[2018-08-03] MEDS ORDERED: HYDROmorphone 0.5 mg/0.5 ml ISec IVP PRN (12:40)
[2018-08-03] MEDS ORDERED: Lactated Ringer's 1,000 ML IV SCH (12:45)
--- NOTE | 2018-08-03 12:53 | PCM.SURG1 ---
Surgeon's Initial Post Op Note - Surgeon's Notes Surgeon: Daron Machine Assistant: None Type of Anesthesia: General LMA Pre-Operative Diagnosis: endometrial polyp Operative Findings: atrophic and endometrial polyp, stage III prolapse Post-Operative Diagnosis: same Operation Performed: hysteroscopy D&C meagan Specimen/Specimens Removed: directed endometrial curetting and polyp, NS deficit 15cc Estimated Blood Loss: EBL {In ML}: 5 Date of Surgery/Procedure: 08/03/18 Time of Surgery/Procedure: 12:52
[2018-08-03 14:46] VITALS: BP 136/79; PULSE 71; RESP 18; TEMP 98; O2SAT 100
--- NOTE | 2018-08-10 06:07 | OP ---
PROCEDURE DATE: 08/03/2018 PREOPERATIVE DIAGNOSIS: Thickened lining, endometrial polyp. POSTOPERATIVE DIAGNOSIS: Thickened lining, endometrial polyp. SURGEON: Cecilia Neri MD CREDIT RISK MANAGER: None. TYPE OF ANESTHESIA: General LMA. OPERATIVE FINDINGS: Atrophic lining and endometrial polyp, stage III prolapse. OPERATION PERFORMED: Hysteroscopy, dilation and curettage, and MyoSure. OPERATIVE PROCEDURE: The patient was taken to the OR, where timeout was performed. She was prepped and draped in the usual sterile fashion. After bimanual exam, the cervix was grasped with single-tooth tenaculum and sterilely dilated to allow passage of the operative hysteroscope. Normal saline distention medium was used. The above findings were noted. The pathology was resected using MyoSure and then a visually-directed D and C was performed. The patient tolerated the procedure well. SPECIMEN: Directed endometrial curetting and polyp. NORMAL SALINE DEFICIT: 15 mL. ESTIMATED BLOOD LOSS: 5 mL. POSTOPERATIVE CONDITION: Stable for PACU. Cecilia Neri MD
== END 2018-08-03 15:15 | disposition home or self-care (01) ==
LOC: C.SDS 07:46
PROVIDERS: ATTEND Obstetrics & Gynecology
DX: N84.0 Polyp of corpus uteri (principal); E11.9 Type 2 diabetes mellitus without complications; E03.9 Hypothyroidism, unspecified; I10 Essential (primary) hypertension; N81.3 Complete uterovaginal prolapse
CPT/HCPCS: 58558; 82948; 88305; J1170; J2704; J3010

== ENCOUNTER 2019-01-11 09:04 | Outpatient (CLI) | payer MEDICARE | END 2019-01-11 09:05 | disposition home or self-care (01) | LOC: C.USIC 09:05 | DX: E04.2 Nontoxic multinodular goiter (principal) ==

== ENCOUNTER 2019-01-11 09:14 | Outpatient (CLI) | payer MEDICARE | END 2019-01-11 09:15 | disposition home or self-care (01) | LOC: C.USIC 09:15 | DX: N28.1 Cyst of kidney, acquired (principal); M54.5 Low back pain; M48.061 Spinal stenosis, lumbar region without neurogenic claudication; M89.40 Other hypertrophic osteoarthropathy, unspecified site ==